=== PATIENT | female | born 1955 | race African-American/Black ===

== ENCOUNTER 2016-03-08 07:00 | Inpatient (IN) | payer OTHER ==
[~2016-03-08] VITALS: Ht 167.6 cm; Wt 81.4 kg
[2016-08-16] VITALS (28 sets, daily range): BP systolic 122–160; BP diastolic 60–93; PULSE 70–91; RESP 12–32; Ht 167.6 cm; Wt 81.4 kg
[2016-08-16] MEDS ORDERED: CEFAZOLIN 2GM/50 ML (PMX) 50 ML X1 BEFORE INCISION IVPB ONE (11:30)
[2016-08-16] MEDS ORDERED: CELECOXIB 400 MG PO X1 DOSE PO ONE (11:30)
[2016-08-16] MEDS ORDERED: oxyCODONE (CR) 10 MG TAB [oxyCONTIN] X1 DOSE PO ONE (11:30)
[2016-08-16] MEDS ORDERED: traMADOL 50 MG TAB X 1 DOSE PO ONE (11:30)
[2016-08-16] MEDS ORDERED: ROCURONIUM 50 MG INJ ONE (12:06)
[2016-08-16] MEDS ORDERED: LIDOCAINE 2% (SDV) 5 ML INJ ONE (12:06)
[2016-08-16] MEDS ORDERED: PROPOFOL 100 ML ONE (12:06)
[2016-08-16] MEDS ORDERED: GLYCOPYRROLATE 1 MG INJ ONE (12:06)
[2016-08-16] MEDS ORDERED: NEOSTIGMINE 3 MG/3 ML SYRINGE ONE (12:06)
[2016-08-16] MEDS ORDERED: MIDAZOLAM 1 MG/ML 2 ML INJ ONE (12:06)
[2016-08-16] MEDS ORDERED: FENTAnyl 50 MCG/ML VIAL ONE ×2 (12:06→12:10)
[2016-08-16] MEDS ORDERED: DEXAMETHASONE 4 MG/ML 1 ML INJ ONE (12:06)
[2016-08-16] MEDS ORDERED: ONDANSETRON 4 MG INJ ONE (12:06)
[2016-08-16] MEDS ORDERED: ETOMIDATE 20 MG INJ ONE (12:07)
[2016-08-16] MEDS ORDERED: BUPR150T6 PO (12:57)
[2016-08-16] MEDS ORDERED: HYDR-2086 PO (12:57)
[2016-08-16] MEDS ORDERED: DICL75TA2 PO (12:57)
[2016-08-16] MEDS ORDERED: LAMO200T PO (12:57)
[2016-08-16] MEDS ORDERED: ALPR1TAB7 PO (12:57)
[2016-08-16] MEDS ORDERED: QUET400T11 PO (12:57)
[2016-08-16] MEDS ORDERED: ESCI20TA38 PO (12:57)
[2016-08-16] MEDS ORDERED: GABA300C PO (12:57)
[2016-08-16] MEDS ORDERED: TRANEXAMIC ACID 880 MG in SOD CHLORIDE 0.9% 100 ML IVPB SCH (13:30)
[2016-08-16] MEDS ORDERED: SOD CHLORIDE 0.9% IV ONE (13:30)
[2016-08-16] MEDS ORDERED: TRANEXAMIC ACID IV ONE (13:30)
[2016-08-16] MEDS ORDERED: EXPAREL NOTE (BUPIVICAINE LIPOSOMAL) XX SCH (14:00)
[2016-08-16] MEDS ORDERED: BUPIVACAINE LIPOSOME/PF 266 MG/20 ML VIAL INFIL SCH (14:00)
[2016-08-16] MEDS ORDERED: SODIUM CL BACTERIOSTATIC 30 ML INJ ONE (14:47)
[2016-08-16] MEDS ORDERED: POLYMYXIN B 500000 UNIT INJ ONE (14:48)
[2016-08-16] MEDS ORDERED: PAIN COCKTAIL-CEFUROXIME IRR SCH ×7 (15:00)
[2016-08-16] MEDS ORDERED: PREGABALIN 300 MG PO X1 PO ONE (15:00)
[2016-08-16] MEDS ORDERED: CEFAZOLIN 1 GM INJ ONE (15:05)
[2016-08-16] MEDS ORDERED: BACITRACIN 50000 UNITS INJ ONE (15:07)
[2016-08-16] MEDS ORDERED: HYDROmorphONE (0.2 MG/ML) 10ML SYG IV PRN ×3 (15:30)
[2016-08-16] MEDS ORDERED: MEPERIDINE 25 MG INJ IV PRN (15:30)
[2016-08-16] MEDS ORDERED: TRIMETHOBENZAMIDE 100 MG/ML VIAL IM PRN (15:30)
[2016-08-16] MEDS ORDERED: FENTAnyl 50 MCG/ML VIAL IV PRN ×3 (15:30)
[2016-08-16] MEDS ORDERED: EPHEDrine SULFATE 50 MG/5 ML SYG IV PRN (15:30)
[2016-08-16] MEDS ORDERED: hydrALAzine 20 MG INJ IV PRN (15:30)
[2016-08-16] MEDS ORDERED: LABETALOL HCL 20MG INJ IV PRN (15:30)
[2016-08-16] MEDS ORDERED: ONDANSETRON 4 MG INJ IV PRN ×2 (15:30→18:00)
[2016-08-16] MEDS ORDERED: MIDAZOLAM 1 MG/ML 2 ML INJ IV PRN (15:30)
[2016-08-16] MEDS ORDERED: DIPHENHYDRAMINE 50 MG INJ IV PRN (15:30)
[2016-08-16] MEDS: VANCOMYCIN 1 GM INJ ONE ×2 (15:56→15:57)
--- NOTE | 2016-08-16 17:48 | OPPN ---
Date/Time of Note Date/Time of Note DATE: 08/16/16 TIME: 17:47 Operative/Procedure Note DIctation # [id number] Pre-Operative Diagnosis Left Knee OA Post-Operative Diagnosis Same Procedure Left TKA Surgeon: KINGSLEY SOTO MD Telegrapher Agent: KAMRAN MANUEL PA-C Anesthesiologist: Justus Birch M.D. Findings Severe OA Blood Usage/Administration None Implants/Grafts Depuy Attune TKA Estimated blood loss: 50 - 100 ml's Drains Hemovac x 1 Specimens: Not Applicable Complications: None Anesthesia type: spinal KINGSLEY SOTO MD Aug 16, 2016 17:48
--- NOTE | 2016-08-16 17:51 | PN ---
Date/Time of Note Date/Time of Note DATE: 08/16/16 TIME: 17:48 Assessment/Plan Lines/Catheters IV Catheter Type (from Nrsg): Peripheral IV Assessment/Plan Assessment/Plan Stable in PACU, s/p left TKA -cont abx -pain meds -cont home meds -ASA/SCDs -OOB with PT POD #1 -monitor drain -check AM labs -d/c waterman in AM XR of the left knee is pending at this time Subjective 24 Hr Interval Summary Stable in PACU. Minimal pain. Moving all extremities. Exam/Review of Systems Vital Signs Vitals Vital Signs Date Time Temp Pulse Resp B/P Pulse Ox O2 Delivery O2 Flow Rate FiO2 08/16/16 11:41 99.1 70 18 140/83 96 Room Air Intake and Output 08/15/16 08/15/16 08/16/16 15:00 23:00 07:00 Intake Total 0 ml Balance 0 ml Exam Free Text/Dictation Dressing dry Incision clean, dry, and intact without redness or drainage Thigh soft 5/5 Quadriceps, Tibialis Anterior, EHL, Gastroc, Soleus, Peroneals Normal sensation Palpable DT/PT, CR <2 sec No distal edema KAMRAN MANUEL PA-C Aug 16, 2016 17:51
[2016-08-16] MEDS ORDERED: oxyCODONE 5 MG TAB PO PRN (18:00)
[2016-08-16] MEDS ORDERED: DIPHENHYDRAMINE 25 MG CAP PO PRN (18:00)
[2016-08-16] MEDS ORDERED: BISACODYL 10 MG SUPP PR PRN (18:00)
[2016-08-16] MEDS: PANTOPRAZOLE (EC) 40 MG TAB PO SCH (18:00)
[2016-08-16] MEDS ORDERED: MAGNESIUM HYDROXIDE 30ML CUP PO PRN (18:00)
[2016-08-16] MEDS ORDERED: KETOROLAC 15 MG INJ IV SCH (18:00)
[2016-08-16] MEDS ORDERED: NA PHOSPHATE/BIPHOS 133 ML ENEMA PR PRN (18:00)
[2016-08-16] MEDS ORDERED: ASPIRIN (EC) 325 MG TAB PO ONE (18:00)
[2016-08-16] MEDS ORDERED: NACL 0.9% 3 ML SYG IV SCH (18:00)
[2016-08-16] MEDS ORDERED: HYDROmorphONE 1 MG/ML SYG IV PRN (18:00)
--- NOTE | 2016-08-16 18:14 | OPR ---
DATE OF OPERATION: 08/16/2016 DATE: 08/16/2016. PREOPERATIVE DIAGNOSIS: Left knee osteoarthritis. POSTOPERATIVE DIAGNOSIS: Left knee osteoarthritis. OPERATION PERFORMED: Left total knee arthroplasty. SURGEON: Kingsley Galvan MD COUNSELING AIDE: KAMRAN VU. COMPONENTS USED: DePuy Attune size 6 femoral component, size 5 tibial baseplate, 7 mm polyethylene insert and a 35 patellar button. ANESTHESIA: Spinal plus general endotracheal intubation and periarticular injection. ANESTHESIOLOGIST: JARRETT PITT MD. TOURNIQUET TIME: 67 minutes. ESTIMATED BLOOD LOSS: 50 mL. INTRAVENOUS FLUIDS: Two liters of crystalloid. SPECIMENS: Bone and soft tissue. DRAINS: Hemovac x1. COMPLICATIONS: None. DISPOSITION: Patient tolerated the procedure well and was taken to the recovery room in [facility]. Depuy INDICATIONS: The patient is a 61-year-old woman who has had progressive worsening pain in the left knee with radiographic evidence of severe osteoarthritis. She has failed nonsurgical means of treat ment to control her pain including activity modifications, pain medications, intra-articular injecti ons and ambulatory assist devices. Despite these measures, she has had worsening pain and I felt sh e would benefit from a total knee arthroplasty. The risks, benefits, and alternatives of the procedure were explained in detail to the patient. I ex plained the risks of the surgery to include but not be limited to, bleeding and possible need for bl ood transfusion; infection; pain; stiffness; neurovascular injury with possible numbness, weakness, and/or paralysis anywhere from the knee down to the toes; fracture; instability; dislocation; wear a nd/or loosening of the prosthesis and possible need for future revision; blood clots; pulmonary embo lism; and anesthetic complications such as heart attack, stroke, GI bleed, pneumonia, and/or . Ample time was allowed for the patient to ask questions, all of which were addressed and answered. T he patient understood the risks involved and wished to proceed. Informed consent was signed prior to the procedure. PROCEDURE: The patient's left knee was initialed with a marking pen in the preoperative area to kinjal ntify the correct operative site. The patient was brought to the operating room and transferred from the [facility] to the operating table where a spinal anesthetic was administered. The patient was then anesthetized and intubated. A Kumar catheter was placed. A timeout was performed to confirm that the left leg was the correct operative site. The patient was given 2 g of Ancef within one kwame r prior to the procedure. A tourniquet was placed on the operative proximal thigh. The operative kne e and lower extremity were prepped and draped in the usual sterile fashion. The operative lower extr emity was elevated and exsanguinated with an Esmarch tourniquet. The proximal thigh tourniquet was i nflated to 300 mmHg. The knee was flexed. A midline incision was made and carried down through the subcutaneous tissue an d fat with sharp dissection. Limited medial and lateral flaps were raised. A left approach was perfo rmed. Synovial fluid was normal in color and consistency. The patella was everted and the knee flexe d. There were severe tricompartmental osteoarthritic changes noted. A medial release was performed a t the joint line to the midcoronal plane. The ACL and PCL and remnants of the menisci were excised. The stepped drill was used to open up the femoral canal which was irrigated and sucked dry. The intr amedullary guide freida was passed up the femur, and the distal cutting block was pinned into place for a 5 degree valgus cut, taking 10 mm of bone off distally. The oscillating saw was used to make the cut. The tibia was subluxed anteriorly. The5 tibial cutoff jig was placed over the center of the talus di stally and over the junction of the medial and middle third of the tibial tubercle proximally. The g uide was pinned into place and the oscillating saw was used to make the cut. The tibia was sized. Th e extension gap was checked and accommodated a 7 mm spacer block with the knee in full extension. Th ere was no varus or valgus instability. At this point, the femur was sized with the posterior referencing guide. Two holes were drilled in 3 degrees of external rotation. The two holes were in line with the transepicondylar axis, perpendicu lar to Dave's line, and in line with the tibial cutoff jig brought up with the knee flexed 90 d egrees and tensed with 2 lamina spreaders, suggesting the femoral rotation was correct. The four-in- one cutting block was pinned into place. The anterior and posterior cuts and chamfer cuts were made with the oscillating saw. The flexion gap was checked and accommodated the 23 mm spacer block at 90 degrees. There was no varus or valgus instability, suggesting the flexion and extension gaps were no w equal. The central box was cut out on the femur. The tibia was drilled and punched in proper rotation. Tria l components were placed into position with a trial insert. The patella was cut down to 14 mm and si zed. Three holes were drilled and the trial button placed in position. With all the trials now in pl thania, the knee was taken through range of motion and came to full extension as evidenced by the fact that with the foot on my abdomen and axial loading, there was no tendency for the knee to flex. The knee was able to be flexed to 125 degrees with good patellar tracking with no lateral tilt or sublux ation. At this point, I was satisfied with the overall range of motion, stability, and patellar trac umer. The trials were removed. The real components were opened. Two bags of cement were mixed, one with an d one without premixed antibiotic. The knee was irrigated with antibiotic saline and sucked dry. Onc e the cement was in a doughy stage, the real components were cemented into place. The knee was held in full extension, and the patellar component was held with a patellar clamp. All excess cement was removed with curettes. As the cement was hardening, the synovial/capsular layer was infiltrated with a mixture of 150 mg of 0.5% Bupivacaine, 8 mg of Duramorph, 300 mcg of epinephrine, 30 mg of Torado l, 100 mcg of clonidine, 750 mg of cefuroxime and 86 mL of normal saline, followed by an injection o f 266 mg of liposomal Bupivacaine. A Hemovac drain was placed in the deep portion of the wound and brought out the anterolateral thigh. Once the cement was completely hardened, the trial liner was removed, and the real insert was opene d. The tourniquet was let down, and there was good hemostasis. The knee was then irrigated with a mi xture of betadine/saline and then antibiotic saline with pulsatile lavage. The real insert was impac paulina into the tibia and reduced onto to the femur. The arthrotomy was closed with a few interrupted #1 Ethibond in a [id number] fashion, and then closed in a watertight fashion with a running #2 Stratafix suture. Knee flexion was checked against gravity and came to 125 degrees. The subcutaneous layer was irrigated and closed with 2-0 Statafix, and then 3-0 Statafix and then Prineo Dermabond on the skin. The wound was covered with an occlusive dressing, and secured with cast padding and a bias dressing. The drain was secured with 3-0 nylon. The sponge and needle counts were correct at the end of the case. The patient was then awakened, ext ubated, and taken to the recovery room in stable condition. Dictated By: KINGSLEY DAUGHERTY/NTS Conf#: [id number] DID#: [id number]
--- NOTE | 2016-08-16 18:21 | RADRPT ---
PROCEDURE: XR Knee. CLINICAL INDICATION: Postop TECHNIQUE: Two views of the left knee are available for review. COMPARISON: None available FINDINGS: Left knee prosthesis is identified in anatomic location. No acute fracture or dislocation is seen. Alignment is anatomic. A drain is noted overlying the suprapatellar region from recent postsurgical change. RPTAT: EE IMPRESSION: 1. Left knee replacement in anatomic location. 2. No acute fracture or dislocation is seen. .Susie Goodman MD, MD Date Time Electronically viewed and signed by .Susie Goodman MD, on 08/16/2016 18:24 .T/
[2016-08-16 18:40] LABS: HEMATOCRIT 33.8 % (37.0-47.0); HEMOGLOBIN 11.1 g/dl (12.0-16.0)
[2016-08-16 19:04] LABS: CALCIUM 8.5 mg/dl (8.4-10.2); CREATININE 0.82 mg/dl (0.44-1.00); POTASSIUM 4.8 mmol/L (3.5-5.1)
[2016-08-16] MEDS: CEFAZOLIN 2 GM/50 ML (PMX) 50 ML IVPB SCH ×2 (19:20→19:38)
[2016-08-16] MEDS: ACETAMINOPHEN 1000MG/100ML IV 100 ML IVPB SCH (19:40)
[2016-08-16] MEDS ORDERED: QUETIAPINE 100 MG TAB PO SCH ×2 (21:00)
[2016-08-16] MEDS ORDERED: GABAPENTIN 100 MG CAP PO SCH (21:00)
[2016-08-16] MEDS: GABAPENTIN 300 MG CAP PO SCH (21:07)
[2016-08-16] MEDS: DOCUSATE SODIUM 100 MG CAP PO SCH (21:07)
[2016-08-16] MEDS: PREGABALIN 25 MG CAP PO SCH (21:07)
[2016-08-16] MEDS: KETOROLAC 15 MG INJ IV SCH (21:08)
--- NOTE | 2016-08-16 23:49 | CONS ---
DATE OF ADMISSION: 08/16/2016 DATE OF CONSULTATION: 08/16/2016 TIME: 9:30 p.m. REASON FOR CONSULTATION: Medical management. HISTORY OF PRESENT ILLNESS: The patient is a 61-year-old female with a history of schizophrenia as well as depression and left knee osteoarthritis. The patient is status post left total knee arthrop lasty today. Consultation was placed for medical management. The patient does have a history of sc hizophrenia as well as anxiety and depression. She has no other medical history. She has no other complaints at this time except for pain in the knee where she had surgery done earlier today. PAST MEDICAL HISTORY: Schizophrenia, depression, anxiety, insomnia. PAST SURGICAL HISTORY: She had 2 surgeries in her neck. She had 2 sections and she is pos top day 0 for a left total knee arthroplasty. HOME MEDICATIONS: 1. Voltaren gel. 2. Gabapentin. 3. Hydrocodone. 4. Alprazolam. 5. BuSpar. 6. Lexapro. 7. Lamictal. 8. Seroquel. ALLERGIES: NO KNOWN DRUG ALLERGIES. FAMILY HISTORY: Hypertension. SOCIAL HISTORY: Denies any alcohol or drug abuse. She does smoke cigarettes. She smoked a pack a day, now she smokes 4 cigarettes a day. REVIEW OF SYSTEMS: A 12-point review of systems negative except as in HPI. PHYSICAL EXAMINATION: VITAL SIGNS: Temperature is 98.4, pulse is 88, respiratory rate 30, BP is 150/74, saturation 95% on room air. GENERAL: No acute distress, alert and oriented. HEENT: Normocephalic, atraumatic. CHEST: Clear to auscultation. CARDIOVASCULAR: Regular rate and rhythm. ABDOMEN: Nondistended, nontender, soft. EXTREMITIES: No clubbing, cyanosis, or edema. LABORATORIES: Hemoglobin earlier today is 11.1, hematocrit is 33.8. Chemistry within normal limits . DIAGNOSTICS: Knee x-ray shows left knee replacement in anatomical location. No acute fracture or d islocation is seen. ASSESSMENT AND PLAN: 1. Left knee osteoarthritis status post left total knee arthroplasty. Continue pain control. Furt her recommendations per orthopedics. 2. History of schizophrenia as well as depression and anxiety. Continue home psychiatric medicatio ns with Alprazolam, BuSpar, Lexapro, Lamictal, and Seroquel. 3. Prophylaxis: Aspirin. Dictated By: PILLO SOTO/NTS Conf#: [id number] DID#: [id number]
[2016-08-17 00:15] VITALS: BP 133/70; PULSE 81; RESP 19
[2016-08-17] MEDS: LACTATED RINGER'S 1,000 ML IV SCH ×4 (01:33→17:30)
[2016-08-17 01:40] VITALS: BP 144/93; RESP 18
[2016-08-17] MEDS: CEFAZOLIN 2 GM/50 ML (PMX) 50 ML IVPB SCH ×2 (02:49→11:21)
[2016-08-17] MEDS: KETOROLAC 15 MG INJ IV SCH ×2 (04:53→12:32)
[2016-08-17 05:10] VITALS: BP 146/80; PULSE 71; RESP 19
[2016-08-17 05:37] LABS: HEMATOCRIT 31.9 % (37.0-47.0); HEMOGLOBIN 10.4 g/dl (12.0-16.0)
[2016-08-17 05:41] LABS: CREATININE 0.66 mg/dl (0.44-1.00)
[2016-08-17 05:42] LABS: CALCIUM 8.6 mg/dl (8.4-10.2)
[2016-08-17] MEDS: PANTOPRAZOLE (EC) 40 MG TAB PO SCH ×2 (05:50→17:30)
[2016-08-17] MEDS: traMADol 50 MG TAB PO SCH ×5 (05:50→23:52)
[2016-08-17] MEDS: ACETAMINOPHEN 1000MG/100ML IV 100 ML IVPB SCH ×3 (05:50→12:32)
[2016-08-17 06:29] LABS: ADD UMIC YES; URINE BILIRUBIN (Dip) NEGATIVE (NEGATIVE); URINE BLOOD (Dip) TRACE (NEGATIVE); URINE COLOR LT. YELLOW (YELLOW); URINE GLUCOSE (Dip) NEGATIVE (NEGATIVE); URINE KETONES (Dip) NEGATIVE (NEGATIVE); URINE LEUKOCYTE ESTERASE (Dip) NEGATIVE (NEGATIVE); URINE NITRITE (Dip) NEGATIVE (NEGATIVE); URINE TOTAL PROTEIN (Dip) NEGATIVE (NEGATIVE); URINE UROBILINOGEN (Dip) 0.2 E.U./dL (0.1-1.0)
[2016-08-17 06:46] LABS: URINE RBCS 0-2 /HPF (0)
[2016-08-17 07:30] VITALS: BP 128/71; RESP 20
[2016-08-17] MEDS: CELECOXIB 200 MG CAP PO SCH (08:28)
[2016-08-17] MEDS: LAMOTRIGINE 100 MG TAB PO SCH (08:29)
[2016-08-17] MEDS: ASPIRIN (EC) 325 MG TAB PO SCH ×2 (08:29→20:24)
[2016-08-17] MEDS: DOCUSATE SODIUM 100 MG CAP PO SCH ×2 (08:29→20:24)
[2016-08-17] MEDS: PREGABALIN 25 MG CAP PO SCH ×2 (08:30→20:24)
[2016-08-17] MEDS: GABAPENTIN 300 MG CAP PO SCH ×3 (08:30→20:24)
[2016-08-17] MEDS: BUPROPION (XL) 150 MG TAB PO SCH (08:30)
--- NOTE | 2016-08-17 08:31 | PN ---
Date/Time of Note Date/Time of Note DATE: 08/17/16 TIME: 08:29 Assessment/Plan Lines/Catheters IV Catheter Type (from Nrsg): Peripheral IV Waterman in Place (from Nrsg): Yes Assessment/Plan Assessment/Plan Stable POD #1 s/p left TKA -d/c abx -pain meds -seroquel dose adjusted -ASA/SCDs, bilateral LE -OOB with PT -drain removed -d/c waterman -check AM labs -d/c planning. d/c home versus SNF Subjective 24 Hr Interval Summary Doing well. No acute overnight events. Pain minimal. VSS, afebrile Exam/Review of Systems Vital Signs Vitals Vital Signs Date Time Temp Pulse Resp B/P Pulse Ox O2 Delivery O2 Flow Rate FiO2 08/17/16 07:30 97.1 74 20 128/71 99 08/17/16 05:10 Nasal Cannula 2.0 Intake and Output 08/16/16 08/16/16 08/17/16 15:00 23:00 07:00 Intake Total 2036 ml 860 ml Output Total 660 ml 2450 ml Balance 1376 ml -1590 ml Exam Free Text/Dictation Hemovac: 310cc Dressing dry Incision clean, dry, and intact without redness or drainage Thigh soft 5/5 Quadriceps, Tibialis Anterior, EHL, Gastroc, Soleus, Peroneals Normal sensation Palpable DT/PT, CR <2 sec No distal edema Results Result Diagram: 08/17/1641908/17/16419 KAMRAN MANUEL PA-C Aug 17, 2016 08:31
[2016-08-17] MEDS: oxyCODONE 5 MG TAB PO PRN ×3 (08:34→22:31)
[2016-08-17] MEDS ORDERED: ESCITALOPRAM 10 MG TAB PO SCH (09:00)
[2016-08-17] MEDS: ALPRAZOLAM 1 MG TAB PO PRN ×2 (11:21→23:51)
[2016-08-17] MEDS ORDERED: CEPASTAT LOZENGE MT PRN (11:30)
[2016-08-17 11:33] LABS: IRON 56 ug/dl (35-150)
[2016-08-17 11:42] LABS: TOTAL IRON BINDING CAPACITY 281 ug/dl (241-421)
--- NOTE | 2016-08-17 11:51 | PN ---
DATE: 08/17/2016 SUBJECTIVE DATA: Left knee pain not well controlled. Has been up with physical therapy today. OBJECTIVE DATA: VITAL SIGNS: Temperature 97.1, pulse 74, respiratory rate 20, blood pressure 128/71, oxygen saturation 99% on room air. GENERAL: This is a slightly overweight female lying in bed in no apparent distress. HEENT: Head normocephalic and atraumatic. Eyes: Anicteric sclerae. Conjunctivae clear. ENT: Nasal septum is midline. Oral mucosa is moist. NECK: Supple. No JVD. RESPIRATORY: Bilaterally clear to auscultation. No adventitious breath sounds heard. No use of accessory muscles of respiration. CARDIAC: Regular rate and rhythm. No murmurs heard. ABDOMEN: Soft, nontender and nondistended. Bowel sounds positive in all 4 quadrants. GENITOURINARY: Deferred. EXTREMITIES: No cyanosis, no clubbing, no edema. Peripheral pulses palpable. Left knee surgical dressing. NEUROLOGIC: The patient is awake, alert and oriented. Cranial nerves are grossly intact. LABORATORY AND DIAGNOSTIC DATA: Hemoglobin 10.4, hematocrit 31.9. Sodium 144, potassium 4.0, chloride 105, carbon dioxide 30, anion gap 14, BUN 7, creatinine 0.66, glucose 117, calcium 8.6. ASSESSMENT AND PLAN: 1. Left knee osteoarthritis. Status post left knee arthroplasty on 2016. Continue pain control as per surgery. Wound management as per orthopedic surgery. Continue physical therapy. 2. Schizophrenia. Continue antipsychotics. 3. Depression. Continue antidepressants. 4. Anxiety disorder. Continue anxiolytics. 5. Anemia. Etiology unclear. Will obtain an iron panel. We will monitor the hemoglobin and hematocrit closely. Will transfuse as needed. 6. Fluid, electrolytes and nutrition. Continue regular diet. 7. Deep vein thrombosis prophylaxis with aspirin as per orthopedic surgery. 8. Gastrointestinal prophylaxis with proton pump inhibitors. Will continue to follow the patient along with you. Thank you for the consult. Case discussed with Dr. Johnson. AMARI JOHNSON MD, AM/NELSON Conf#: [id number] DID#: [id number] CC: KINGSLEY SOTO MD;*EndCC* MTDD
[2016-08-17] MEDS: QUETIAPINE 100 MG TAB PO SCH (20:24)
[2016-08-17 21:06] VITALS: BP 111/63; RESP 20
[2016-08-18] MEDS: LACTATED RINGER'S 1,000 ML IV SCH ×3 (01:38→17:38)
[2016-08-18 05:29] LABS: BASOPHILS % 0.6 % (0.0-2.0); EOSINOPHILS # 0.1 10^3/ul (0.0-0.5); HEMATOCRIT 27.3 % (37.0-47.0); HEMOGLOBIN 9.2 g/dl (12.0-16.0); LYMPHOCYTES # 2.2 10^3/ul (0.8-2.9); LYMPHOCYTES % 32.6 % (15.0-51.0); MEAN CORPUSCULAR HEMOGLOBIN 29.9 pg (29.0-33.0); MEAN CORPUSCULAR HGB CONC 33.6 g/dl (32.0-37.0); MEAN CORPUSCULAR VOLUME 88.9 fl (82.0-101.0); MONOCYTE # 0.6 10^3/ul (0.3-0.9); MONOCYTES % 8.4 % (0.0-11.0); NEUTROPHIL # 3.9 10^3/ul (1.6-7.5); NEUTROPHILS % 56.4 % (39.0-77.0); PLATELET COUNT 343 10^3/UL (140-440); RED BLOOD COUNT 3.07 10^6/ul (4.20-5.40); RED CELL DISTRIBUTION WIDTH 16.1 % (11.5-14.5); UNCORRECTED WBC 6.8 10^3/ul (4.8-10.8); WHITE BLOOD COUNT 6.8 10^3/ul (4.8-10.8)
[2016-08-18 05:32] LABS: CONDITION 1; LH ANALYZER COMMENTS 1
[2016-08-18 05:39] LABS: MAGNESIUM 1.7 mg/dl (1.7-2.5); PHOSPHORUS 3.9 mg/dl (2.5-4.9)
[2016-08-18 05:49] LABS: POTASSIUM 3.3 mmol/L (3.5-5.1)
[2016-08-18 05:51] LABS: ALBUMIN/GLOBULIN RATIO 1.11; CREATININE 0.77 mg/dl (0.44-1.00); TOTAL PROTEIN 5.7 g/dl (6.1-8.1)
[2016-08-18 05:52] LABS: CALCIUM 8.2 mg/dl (8.4-10.2)
[2016-08-18] MEDS: PANTOPRAZOLE (EC) 40 MG TAB PO SCH ×2 (06:33→17:32)
[2016-08-18] MEDS: traMADol 50 MG TAB PO SCH ×4 (06:34→23:43)
[2016-08-18] MEDS ORDERED: POTASSIUM CHLORIDE (SR) 20 MEQ TAB PO STA (08:06)
[2016-08-18 08:19] VITALS: BP 116/58; RESP 18
--- NOTE | 2016-08-18 08:43 | PN ---
Date/Time of Note Date/Time of Note DATE: 08/18/16 TIME: 08:42 Assessment/Plan VTE Prophylaxis VTE Prophylaxis Intervention: other (Aspirin as per Orthopedic Surgery.) Lines/Catheters IV [facility] ([facility] Saline Lock Urinary Cath still in place: No Assessment/Plan Chief Complaint/Hosp Course 1. Left knee osteoarthritis. Status post left knee arthroplasty on 2016. Continue pain control as per surgery. Wound management as per orthopedic surgery. Continue physical therapy. 2. Schizophrenia. Continue antipsychotics. 3. Depression. Continue antidepressants. 4. Anxiety disorder. Continue anxiolytics. 5. Normocytic, normochromic anemia. Iron panel showing low iron saturation. Will monitor the hemoglobin and hematocrit closely. Will transfuse as needed. 6. Hypokalemia. Replete. 7. Fluid, electrolytes and nutrition. Continue regular diet. 8. Deep vein thrombosis prophylaxis with aspirin as per orthopedic surgery. 9. Gastrointestinal prophylaxis with proton pump inhibitors. Will continue to follow the patient along with you. Thank you for the consult. Case discussed with Dr. Johnson. Problems: Subjective 24 Hr Interval Summary Free Text/Dictation Has left knee pain. Complains of sore throat. Exam/Review of Systems Vital Signs Vitals Vital Signs Date Time Temp Pulse Resp B/P Pulse Ox O2 Delivery O2 Flow Rate FiO2 08/18/16 08:19 97.7 91 18 116/58 96 08/17/16 19:37 2.0 08/17/16 05:10 Nasal Cannula Intake and Output 08/17/16 08/17/16 08/18/16 14:59 22:59 06:59 Intake Total 100 ml 1860 ml 700 ml Output Total 1100 ml Balance 100 ml 760 ml 700 ml Exam GENERAL: This is a slightly overweight female lying in bed in no apparent distress. HEENT: Head normocephalic and atraumatic. Eyes: Anicteric sclerae. Conjunctivae clear. ENT: Nasal septum is midline. Oral mucosa is moist. NECK: Supple. No JVD. RESPIRATORY: Bilaterally clear to auscultation. No adventitious breath sounds heard. No use of accessory muscles of respiration. CARDIAC: Regular rate and rhythm. No murmurs heard. ABDOMEN: Soft, nontender and nondistended. Bowel sounds positive in all 4 quadrants. GENITOURINARY: Deferred. EXTREMITIES: No cyanosis, no clubbing, no edema. Peripheral pulses palpable. Left knee surgical dressing. NEUROLOGIC: The patient is awake, alert and oriented. Cranial nerves are grossly intact. Results Result Diagram: 08/18/1642408/18/16424 Results 24 hrs Laboratory Tests Test 08/18/16 04:25 Alanine Aminotransferase (ALT/SGPT) 23 Albumin 3.0 L Albumin/Globulin Ratio 1.11 Alkaline Phosphatase 81 Anion Gap 13 Aspartate Amino Transf (AST/SGOT) 23 Basophils # 0.0 Basophils % 0.6 Blood Morphology Comment Blood Urea Nitrogen 9 Calcium Level 8.2 L Carbon Dioxide Level 31 Chloride Level 105 Creatinine 0.77 Direct Bilirubin 0.00 Eosinophils # 0.1 Eosinophils % 2.0 Globulin 2.70 Glucose Level 83 Hematocrit 27.3 L Hemoglobin 9.2 L Indirect Bilirubin 0.0 Lymphocytes # 2.2 Lymphocytes % 32.6 Magnesium Level 1.7 Mean Corpuscular Hemoglobin 29.9 Mean Corpuscular Hemoglobin Concent 33.6 Mean Corpuscular Volume 88.9 Mean Platelet Volume 8.0 Monocytes # 0.6 Monocytes % 8.4 Neutrophils # 3.9 Neutrophils % 56.4 Nucleated Red Blood Cells # 0.0 Nucleated Red Blood Cells % 0.0 Phosphorus Level 3.9 Platelet Count 343 Potassium Level 3.3 L Red Blood Count 3.07 L Red Cell Distribution Width 16.1 H Sodium Level 146 H Total Bilirubin 0.0 L Total Protein 5.7 L White Blood Count 6.8 Medications Medications Current Medications Miscellaneous Information 1 ea NOTE XX ; Start 08/16/16 at 14:00; Stop 08/20/16 at 13:59 Alprazolam (Xanax) 1 mg Q8H PRN PO ANXIETY Last administered on 08/17/16 23:51 ; Admin Dose 1 MG; Start 08/16/16 at 18:00 Bupropion HCl (Wellbutrin Xl) 150 mg DAILY PO Last administered on 08/17/16 08: 30; Admin Dose 150 MG; Start 08/17/16 at 09:00 Lamotrigine 200 mg 200 mg DAILY PO Last administered on 08/17/16 08:29; Admin Dose 200 MG; Start 08/17/16 at 09:00 Lactated Ringer's (Lr) 1,000 ml @ 125 mls/hr Q8H IV Last administered on 17:30; Admin Dose 125 MLS/HR; Start 08/16/16 at 17:38 Celecoxib (Celebrex) 200 mg DAILY PO Last administered on 08/17/16 08:28; Admin Dose 200 MG; Start 08/17/16 at 09:00 Tramadol HCl (Ultram) 50 mg Q6 PO Last administered on 08/18/16 06:34; Admin Dose 50 MG; Start 08/16/16 at 18:00; Stop 08/19/16 at 17:59 Oxycodone HCl (Roxicodone) 5 mg Q4H PRN PO PAIN LEVEL 1-3 Last administered on 08/17/16 03:01; Admin Dose 5 MG; Start 08/16/16 at 18:00 Oxycodone HCl (Roxicodone) 10 mg Q4H PRN PO PAIN LEVEL 4-7 Last administered on 08/17/16 22:31; Admin Dose 10 MG; Start 08/16/16 at 18:00 Hydromorphone HCl (Dilaudid) 1 mg Q3H PRN IV PAIN LEVEL 8-10; Start 08/16/16 at 18:00 Ondansetron HCl (Zofran Inj) 4 mg Q6H PRN IV NAUSEA AND/OR VOMITING; Start 08/16 at 18:00 Bisacodyl (Dulcolax Supp) 10 mg Q12H PRN ID CONSTIPATION; Start 08/16/16 at 18: 00 Magnesium Hydroxide (Milk Of Mag) 30 ml BID PRN PO CONSTIPATION; Start 08/16/16 at 18:00 Sodium Biphosphate/ Sodium Phosphate (Fleet Enema) 133 ml DAILY PRN ID CONSTIPATION; Start 08/16/16 at 18:00 Docusate Sodium (Colace) 100 mg BID PO Last administered on 08/17/16 20:24; Admin Dose 100 MG; Start 08/16/16 at 21:00 Diphenhydramine HCl (Benadryl) 25 mg Q6H PRN PO PRURITUS; Start 08/16/16 at 18: 00 Aspirin (Ecotrin) 325 mg BID PO Last administered on 08/17/16 20:24; Admin Dose 325 MG; Start 08/17/16 at 09:00 Pantoprazole (Protonix Tab) 40 mg BID@18 PO Last administered on 08/18/16 06 :33; Admin Dose 40 MG; Start 08/16/16 at 18:00 Pregabalin (Lyrica) 50 mg BID PO Last administered on 08/17/16 20:24; Admin Dose 50 MG; Start 08/16/16 at 21:00 Gabapentin (Neurontin) 300 mg TID PO Last administered on 08/17/16 20:24; Admin Dose 300 MG; Start 08/16/16 at 21:00 Quetiapine Fumarate (Seroquel) 100 mg QHS PO Last administered on 08/17/16 20: 24; Admin Dose 100 MG; Start 08/17/16 at 21:00 Phenol (Cepastat Lozenge) 1 lozenge Q1H PRN MT Sore throat; Start 08/17/16 at 11 :30 Escitalopram Oxalate (Lexapro) 20 mg QHS PO ; Start 08/18/16 at 21:00 AMARI BRIGGS NP Aug 18, 2016 08:43
[2016-08-18] MEDS: BUPROPION (XL) 150 MG TAB PO SCH (08:58)
[2016-08-18] MEDS: LAMOTRIGINE 100 MG TAB PO SCH (08:58)
[2016-08-18] MEDS: ASPIRIN (EC) 325 MG TAB PO SCH ×2 (08:58→21:09)
[2016-08-18] MEDS: GABAPENTIN 300 MG CAP PO SCH ×3 (08:58→21:08)
[2016-08-18] MEDS: CELECOXIB 200 MG CAP PO SCH (08:58)
[2016-08-18] MEDS: PREGABALIN 25 MG CAP PO SCH ×2 (08:59→21:08)
[2016-08-18] MEDS: DOCUSATE SODIUM 100 MG CAP PO SCH ×2 (09:00→21:09)
--- NOTE | 2016-08-18 10:46 | PN ---
Date/Time of Note Date/Time of Note DATE: 08/18/16 TIME: 10:44 Assessment/Plan Lines/Catheters IV Catheter Type (from Nrsg): Saline Lock Kumar in Place (from Nrsg): No Assessment/Plan Assessment/Plan Stable POD #2 s/p left TKA -pain meds -ASA/SCDs -dressing changed -OOB with PT -check AM labs -mild anemia secondary to post operative blood loss. Stable, will monitor for now -discharge planning. Will plan to go home tomorrow. Subjective 24 Hr Interval Summary Doing well. No acute overnight events. Mild pain. Progressing with PT. Will plan to go home tomorrow. Exam/Review of Systems Vital Signs Vitals Vital Signs Date Time Temp Pulse Resp B/P Pulse Ox O2 Delivery O2 Flow Rate FiO2 08/18/16 08:19 97.7 91 18 116/58 96 08/17/16 19:37 2.0 08/17/16 05:10 Nasal Cannula Intake and Output 08/17/16 08/17/16 08/18/16 15:00 23:00 07:00 Intake Total 100 ml 1860 ml 700 ml Output Total 1100 ml Balance 100 ml 760 ml 700 ml Exam Free Text/Dictation Dressing dry Incision clean, dry, and intact without redness or drainage Thigh soft 5/5 Quadriceps, Tibialis Anterior, EHL, Gastroc, Soleus, Peroneals Normal sensation Palpable DT/PT, CR <2 sec No distal edema Results Result Diagram: 08/18/165 08/18/16 0425 KAMRAN MANUEL PA-C Aug 18, 2016 10:45
--- NOTE | 2016-08-18 10:47 | PDOCDIS ---
Discharge Instructions DIAGNOSIS Discharge Diagnosis: s/p left TKA CONDITION Patient Condition: Good HOME CARE INSTRUCTIONS: Diet Instructions: Regular ACTIVITY: Activity Restrictions: No Restrictions Slowly Increase Activity Rest between Activity Avoid heavy lifting Do not operate Machinery Do not operate Power Tool Avoid Heavy Housework Bathing Restrictions: Shower FOLLOW UP/APPOINTMENTS Appointments follow up with Dr. Galvan in the office on 08/26/16 OTHER ORDERS: Other Orders: S/P TKA Physical Therapy: Three times per week at home x 2 weeks WB STATUS: WBAT 1. Strengthening exercises for both upper and un-operated lower extremities. 2. Gait training with front wheeled walker 3. Active range of motion exercises to operative knee. 4. When not working on knee range of motion exercises, distal towel roll under operative ankle/distal calf to promote full extension. 5. DO NOT PUT ANYTHING BEHIND OPERATIVE KNEE!!! 6. Quadriceps and hamstring strengthening. 7. May switch to cane in contra lateral hand 6 weeks after surgery. 8. Physical Therapy can open case if nursing is not available. 9. Use Ice Machine as instructed from date of surgery while at rest 3X/day. 10. Patient requires mobile SCDs to reduce risk of developing DVT following TKA. Patient will use the mobile SCDs for 30 days postoperatively. Bathing assistance by home health aide twice weekly if Medicare patient. Occupational Therapy: Evaluation for assistive devices and ADL training. Wound Care: Keep incision dry & covered with Tegaderm until first visit with Dr. Galvan Anticoagulation Orders: Enteric Coated Aspirin 325 mg po bid x 6 weeks from date of surgery Follow-up:Call for an appointment with Dr. Galvan in 1 week after discharged from hospital at DME Orders: IRAIS, 3-in-1 Commode, Polar ice machine, Mobile SCDs KAMRAN MANUEL PA-C Aug 18, 2016 10:47
[2016-08-18] MEDS ORDERED: ASPI325T32 PO (10:49)
[2016-08-18] MEDS ORDERED: PANT40TA4 PO (10:49)
[2016-08-18] MEDS: oxyCODONE 5 MG TAB PO PRN ×2 (15:41→23:38)
[2016-08-18 19:10] VITALS: BP 108/58; RESP 20
[2016-08-18] MEDS ORDERED: ESCITALOPRAM 10 MG TAB PO SCH (21:00)
[2016-08-18] MEDS: QUETIAPINE 100 MG TAB PO SCH (21:08)
[2016-08-18] MEDS: ALPRAZOLAM 1 MG TAB PO PRN (23:37)
[2016-08-19] MEDS: LACTATED RINGER'S 1,000 ML IV SCH ×2 (01:38→09:00)
[2016-08-19] MEDS: oxyCODONE 5 MG TAB PO PRN ×2 (05:45→13:15)
[2016-08-19] MEDS: PANTOPRAZOLE (EC) 40 MG TAB PO SCH (05:45)
[2016-08-19 05:53] LABS: HEMATOCRIT 28.1 % (37.0-47.0); HEMOGLOBIN 9.4 g/dl (12.0-16.0)
[2016-08-19] MEDS: traMADol 50 MG TAB PO SCH ×2 (06:00→13:14)
[2016-08-19 06:05] LABS: POTASSIUM 4.3 mmol/L (3.5-5.1)
[2016-08-19 06:08] LABS: CALCIUM 8.1 mg/dl (8.4-10.2); CREATININE 0.77 mg/dl (0.44-1.00)
[2016-08-19 08:24] VITALS: BP 122/61; RESP 18
[2016-08-19] MEDS: CELECOXIB 200 MG CAP PO SCH (09:00)
[2016-08-19] MEDS: PREGABALIN 25 MG CAP PO SCH (09:00)
[2016-08-19] MEDS: BUPROPION (XL) 150 MG TAB PO SCH (09:00)
[2016-08-19] MEDS: GABAPENTIN 300 MG CAP PO SCH ×2 (09:00→13:13)
[2016-08-19] MEDS: ASPIRIN (EC) 325 MG TAB PO SCH (09:00)
[2016-08-19] MEDS: DOCUSATE SODIUM 100 MG CAP PO SCH (09:00)
[2016-08-19] MEDS: LAMOTRIGINE 100 MG TAB PO SCH (09:00)
[2016-08-19] MEDS ORDERED: OXYC-209 PO (09:01)
--- NOTE | 2016-08-19 09:03 | PN ---
Date/Time of Note Date/Time of Note DATE: 08/19/16 TIME: 09:02 Assessment/Plan Lines/Catheters IV Catheter Type (from Nrsg): Saline Lock Kumar in Place (from Nrsg): No Assessment/Plan Assessment/Plan Stable POD #3 s/p left TKA -pain meds -ASA/SCDs -OOB with PT -ice and elevationn -dressing change done today -d/c home today -follow up with Dr. Galvan in the office on 08/26/16 Subjective 24 Hr Interval Summary Doing well. No acute overnight events. Mild pain secondary to knee swelling. No calf pain, tenderness or swelling. VSS, afebrile. Would like to go home today Exam/Review of Systems Vital Signs Vitals Vital Signs Date Time Temp Pulse Resp B/P Pulse Ox O2 Delivery O2 Flow Rate FiO2 08/19/16 08:24 98.4 87 18 122/61 93 08/17/16 19:37 2.0 08/17/16 05:10 Nasal Cannula Intake and Output 08/18/16 08/18/16 08/19/16 15:00 23:00 07:00 Intake Total 1140 ml 1200 ml Balance 1140 ml 1200 ml Exam Free Text/Dictation Dressing dry Incision clean, dry, and intact without redness or drainage Thigh soft 5/5 Quadriceps, Tibialis Anterior, EHL, Gastroc, Soleus, Peroneals Normal sensation Palpable DT/PT, CR <2 sec No distal edema Results Result Diagram: 08/19/16 0410 08/19/16 0410 KAMRAN MANUEL PA-C Aug 19, 2016 09:03
--- NOTE | 2016-08-19 09:53 | PN ---
Date/Time of Note Date/Time of Note DATE: 08/19/16 TIME: 09:51 Assessment/Plan VTE Prophylaxis VTE Prophylaxis Intervention: other (asprin per ortho) Lines/Catheters IV Catheter Type (from Nrs): Saline Lock Urinary Cath still in place: No Assessment/Plan Assessment/Plan 1. Left knee osteoarthritis. Status post left knee arthroplasty on 2016. Continue pain control as per surgery. Wound management as per orthopedic surgery. Continue physical therapy. 2. Schizophrenia. Continue antipsychotics. 3. Depression. Continue antidepressants. 4. Anxiety disorder. Continue anxiolytics. 5. Normocytic, normochromic anemia. Iron panel showing low iron saturation. 6. Hypokalemia. Repleted. 7. Fluid, electrolytes and nutrition. Continue regular diet. 8. Deep vein thrombosis prophylaxis with aspirin as per orthopedic surgery. 9. Gastrointestinal prophylaxis with proton pump inhibitors. DISPO: agree with d/c. F/u with outpt PCP in 1-2 weeks. Subjective 24 Hr Interval Summary Free Text/Dictation patient seen doing well, planned for d/c today Exam/Review of Systems Vital Signs Vitals Vital Signs Date Time Temp Pulse Resp B/P Pulse Ox O2 Delivery O2 Flow Rate FiO2 08/19/16 08:24 98.4 87 18 122/61 93 08/17/16 19:37 2.0 08/17/16 05:10 Nasal Cannula Intake and Output 08/18/16 08/18/16 08/19/16 15:00 23:00 07:00 Intake Total 1140 ml 1200 ml Balance 1140 ml 1200 ml Exam GENERAL: This is a slightly overweight female lying in bed in no apparent distress. HEENT: Head normocephalic and atraumatic. Eyes: Anicteric sclerae. Conjunctivae clear. ENT: Nasal septum is midline. Oral mucosa is moist. NECK: Supple. No JVD. RESPIRATORY: Bilaterally clear to auscultation. No adventitious breath sounds heard. No use of accessory muscles of respiration. CARDIAC: Regular rate and rhythm. No murmurs heard. ABDOMEN: Soft, nontender and nondistended. Bowel sounds positive in all 4 quadrants. GENITOURINARY: Deferred. EXTREMITIES: No cyanosis, no clubbing, no edema. Peripheral pulses palpable. Left knee surgical dressing. NEUROLOGIC: The patient is awake, alert and oriented. Cranial nerves are grossly intact. Results Result Diagram: 08/19/16 0410 08/19/16 0410 Results 24 hrs Laboratory Tests Test 08/19/16 04:10 Anion Gap 10 Blood Urea Nitrogen 8 Calcium Level 8.1 L Carbon Dioxide Level 33 H Chloride Level 103 Creatinine 0.77 Glucose Level 89 Hematocrit 28.1 L Hemoglobin 9.4 L Potassium Level 4.3 Sodium Level 142 Medications Medications Current Medications Miscellaneous Information 1 ea NOTE XX ; Start 08/16/16 at 14:00; Stop 08/20/16 at 13:59 Alprazolam (Xanax) 1 mg Q8H PRN PO ANXIETY Last administered on 08/18/16 23:37 ; Admin Dose 1 MG; Start 08/16/16 at 18:00 Bupropion HCl (Wellbutrin Xl) 150 mg DAILY PO Last administered on 08/19/16 09: 00; Admin Dose 150 MG; Start 08/17/16 at 09:00 Lamotrigine 200 mg 200 mg DAILY PO Last administered on 08/19/16 09:00; Admin Dose 200 MG; Start 08/17/16 at 09:00 Lactated Ringer's (Lr) 1,000 ml @ 125 mls/hr Q8H IV Last administered on 17:30; Admin Dose 125 MLS/HR; Start 08/16/16 at 17:38 Celecoxib (Celebrex) 200 mg DAILY PO Last administered on 08/19/16 09:00; Admin Dose 200 MG; Start 08/17/16 at 09:00 Tramadol HCl (Ultram) 50 mg Q6 PO Last administered on 08/18/16 17:33; Admin Dose 50 MG; Start 08/16/16 at 18:00; Stop 08/19/16 at 17:59 Oxycodone HCl (Roxicodone) 5 mg Q4H PRN PO PAIN LEVEL 1-3 Last administered on 08/17/16 03:01; Admin Dose 5 MG; Start 08/16/16 at 18:00 Oxycodone HCl (Roxicodone) 10 mg Q4H PRN PO PAIN LEVEL 4-7 Last administered on 08/19/16 05:45; Admin Dose 10 MG; Start 08/16/16 at 18:00 Hydromorphone HCl (Dilaudid) 1 mg Q3H PRN IV PAIN LEVEL 8-10 Last administered on 08/18/16 16:38; Admin Dose 1 MG; Start 08/16/16 at 18:00 Ondansetron HCl (Zofran Inj) 4 mg Q6H PRN IV NAUSEA AND/OR VOMITING; Start 08/16 at 18:00 Bisacodyl (Dulcolax Supp) 10 mg Q12H PRN ID CONSTIPATION; Start 08/16/16 at 18: 00 Magnesium Hydroxide (Milk Of Mag) 30 ml BID PRN PO CONSTIPATION; Start 08/16/16 at 18:00 Sodium Biphosphate/ Sodium Phosphate (Fleet Enema) 133 ml DAILY PRN ID CONSTIPATION; Start 08/16/16 at 18:00 Docusate Sodium (Colace) 100 mg BID PO Last administered on 08/19/16 09:00; Admin Dose 100 MG; Start 08/16/16 at 21:00 Diphenhydramine HCl (Benadryl) 25 mg Q6H PRN PO PRURITUS; Start 08/16/16 at 18: 00 Aspirin (Ecotrin) 325 mg BID PO Last administered on 08/19/16 09:00; Admin Dose 325 MG; Start 08/17/16 at 09:00 Pantoprazole (Protonix Tab) 40 mg BID@,18 PO Last administered on 08/19/16 05 :45; Admin Dose 40 MG; Start 08/16/16 at 18:00 Pregabalin (Lyrica) 50 mg BID PO Last administered on 08/18/16 21:08; Admin Dose 50 MG; Start 08/16/16 at 21:00 Gabapentin (Neurontin) 300 mg TID PO Last administered on 08/19/16 09:00; Admin Dose 300 MG; Start 08/16/16 at 21:00 Quetiapine Fumarate (Seroquel) 100 mg QHS PO Last administered on 08/18/16 21: 08; Admin Dose 100 MG; Start 08/17/16 at 21:00 Phenol (Cepastat Lozenge) 1 lozenge Q1H PRN MT Sore throat; Start 08/17/16 at 11 :30 Escitalopram Oxalate (Lexapro) 20 mg QHS PO Last administered on 08/18/16 21:09 ; Admin Dose 20 MG; Start 08/18/16 at 21:00 VITALIY LOOMIS Aug 19, 2016 09:53
--- NOTE | 2016-08-20 12:12 | DS ---
DATE OF ADMISSION: 08/16/2016 DATE OF DISCHARGE: 08/19/2016 CONDITION ON DISCHARGE: Stable. ADMITTING DIAGNOSIS: Left knee osteoarthritis. DISCHARGE DIAGNOSIS: Status post left total knee arthroplasty. PROCEDURES PERFORMED: Left total knee arthroplasty. HOSPITAL COURSE: This is a 61-year-old female who was seen in the clinic initially complaining of right knee pain. Radiographically, she had findings of advanced osteoarthritis of the left knee and elected to proceed with a primary left total knee arthroplasty. On 08/16/2016, the patient was admitted and taken to the operating room where she underwent a left total knee arthroplasty. There were no intraoperative complications. Patient tolerated the procedure well. She was taken to the recovery room in stable condition. She was given routine perioperative IV antibiotics. Pain was well controlled on oral pain medication. She was started on enteric coated aspirin 325 mg b.i.d. and SCDs for DVT prophylaxis. She remained hemodynamically stable and neurovascularly intact throughout her hospital stay. On postoperative day zero she began physical therapy and did well. The drain was removed. She continues to do well with physical therapy and was deemed clinically stable for discharge home on postoperative day #3. Prior to discharge, the incision was inspected and noted to be clean, dry and intact. Dressing changes were done prior to the patient being discharged home. LABORATORY ANALYSIS upon discharge hemoglobin 9.4, hematocrit 28.1. Chemistry panel was within normal limits . DISCHARGE MEDICATIONS: 1. Percocet 10/325. 2. Aspirin 325 mg. 3. Protonix 40 mg. Additionally, the patient should resume all her normal home medications. DISCHARGE INSTRUCTIONS: The patient will be discharged home in stable condition. She should resume a normal diet. Activities include weightbearing as tolerated. She should continue to do physical therapy. She will be discharged home with the medications noted above. Additionally, she is to resume all of her normal home medications. The patient is to call the office or return to the emergency room if any concerns including increased redness, swelling, drainage or fever or any concern regarding the operation or site incision. FOLLOWUP: The patient to follow up with Dr. Galvan in the office on 08/26/2016. Dictated By: KAMRAN VU for KINGSLEY NG/NELSON Conf#: [id number] DID#: [id number] MTDD
== END 2016-08-19 13:56 | disposition home health service (06) | DRG 470 ==
LOC: REC 08-16 10:10 → MS1 08-16 20:15
PROVIDERS: ADMIT Orthopaedic Surgery; ATTEND Orthopaedic Surgery
PROC: 0SRD0J9 Replacement of Left Knee Joint with Synthetic Substitute, Cemented, Open Approach (ICD-10-PCS; principal; 2016-08-16 13:30)
DX: M17.12 Unilateral primary osteoarthritis, left knee (principal); F32.9 Major depressive disorder, single episode, unspecified; F20.9 Schizophrenia, unspecified; F41.9 Anxiety disorder, unspecified; D64.9 Anemia, unspecified; E87.6 Hypokalemia
CPT/HCPCS: 73560; 80048; 80053; 81001; 81003; 82728; 83540; 83735; 84100; 85014; 85018; 85025; 86850; 86900; 86901; 86920; 87081; 87086; 88104; 88305; 88313; 97110; 97116; 97162; 97530; Z7610; C1776; C9290; J0131; J0171; J0690; J0697; J0735; J1100; J1170; J1200; J1885; J2250; J2274; J2405; J2710; J3010; J3370; J7120

== ENCOUNTER 2016-08-26 12:39 | Emergency (ER) | payer OTHER ==
[~2016-08-26] VITALS: Ht 167.6 cm; Wt 85.0 kg
[2016-08-26 12:53] VITALS: Ht 167.6 cm; Wt 85.0 kg
--- NOTE | 2016-08-26 15:13 | ERD ---
ER Documentation Chief Complaint Date/Time DATE: 08/26/16 TIME: 15:11 Chief Complaint Pt with L knee surgery sent from Dr English to r/o DVT HPI This is a 61-year-old female presenting to the emergency department status post total knee replacement of the left knee on last Monday with . Patient states that she started feeling increased left knee and left calf pain that radiates up to thigh on Monday. Patient rates the pain as severe. Patient denies any chest pain, shortness of breath. Patient states that she took oxycodone on 4 hours prior to being seen without any relief. Patient was referred from Dr. Tamez to rule out DVT of the left extremity ROS All systems reviewed and are negative except as per history of present illness. Medications Home Meds Active Scripts Oxycodone HCl/Acetaminophen (Percocet 10-325 mg Tablet) 1 Each Tablet, 1 EACH PO Q6 for PAIN LEVEL 6-10, #60 TAB Prov:KAMRAN MANUEL PA-C 08/19/16 Pantoprazole* (Pantoprazole*) 40 Mg Tablet., 40 MG PO BID@06,18 for 30 Days, # 60 Prov:KAMRAN MANUEL PA-C 08/18/16 Aspirin (Aspir-Joanne) 325 Mg Tablet., 325 MG PO BID for 30 Days, #60 Prov:KAMRAN MANUEL PA-C 08/18/16 Reported Medications Gabapentin* (Neurontin*) 300 Mg Capsule, 900 MG PO DAILY, #60 CAP 08/16/16 Escitalopram Oxalate* (Escitalopram Oxalate*) 20 Mg Tablet, 20 MG PO DAILY, #30 TAB 08/16/16 Quetiapine Fumarate* (Quetiapine Fumarate*) 400 Mg Tablet, 1000 MG PO HS, TAB 08/16/16 Lamotrigine* (Lamotrigine*) 200 Mg Tablet, 200 MG PO DAILY, TAB 08/16/16 Alprazolam* (Alprazolam*) 1 Mg Tablet, 1 MG PO Q8H Y for ANXIETY, TAB 08/16/16 Bupropion Hcl* (Bupropion XL*) 150 Mg Tab.er.24h, 150 MG PO DAILY, TAB.SA 08/16/16 Allergies Allergies: Coded Allergies: No Known Drug Allergies (Verified Allergy, Unknown, 08/16/16) PMhx/Soc History of Surgery: Yes (C SECTION X2, CERVICAL NECK SX (C3-4-5) WITH SCREWS) Anesthesia Reaction: Yes (AT ONE TIME"FLAT LINE" AFTER ANESTHESIA) Hx Neurological Disorder: No Hx Respiratory Disorders: No Hx Cardiac Disorders: No Hx Psychiatric Problems: Yes (BIPOLAR, DEPRESSION, schizophrenia, anxiety) Hx Miscellaneous Medical Probl: Yes (schizophrenia, depression, C/S surgery, anxiety, insomnia) Hx Alcohol Use: No Hx Substance Use: No Hx Tobacco Use: Yes (2 TO 3 CIG A DAY) Smoking Status: Unknown if ever smoked Physical Exam Vitals Vital Signs Date Time Temp Pulse Resp B/P Pulse Ox O2 Delivery O2 Flow Rate FiO2 08/26/16 12:53 98.3 88 16 150/77 97 Physical Exam General: WD/WN, in no apparent distress, non-toxic appearing HENT: NC/AT Eyes: Conjunctiva normal Neck: Supple Pulm: Clear to auscultation, normal labored breathing; no wheezing/rales/ rhonchi heard CV: Good capillary refill GI: Non-distended, no guarding Back: No masses Ext: no pitting edema bilaterally, mild knee swelling, positive Homans sign on the left, +2 pedal pulses Neuro: Moves on all fours Skin: intact Psych: Normal mood Procedures/MDM This is a 61-year-old female presenting to the emergency department status post total knee replacement of the left knee on last Monday with . Patient states that she started feeling increased left knee and left calf pain since Monday. Patient was referred from Dr. Tamez to rule out DVT of the left extremity. A venous ultrasound of the left lower extremity was done and did not show any evidence of deep vein thrombosis. I have discussed this with the patient. I discussed to follow-up with Dr. Tamez in the next couple days. Discussed return to the ER for any worsening signs or symptoms. Patient understands and agrees with this plan I will low suspicion for cellulitis, DVT, osteomyelitis. Departure Diagnosis: Primary Impression: Encounter for laboratory test Condition: Stable ALINE MERCADO PA-C Aug 26, 2016 15:13
--- NOTE | 2016-08-26 15:21 | RADRPT ---
PROCEDURE: US Lower extremity Venous. CLINICAL INDICATION: Left leg pain TECHNIQUE: Multiple sonographic images of the left lower extremity deep venous system was obtained utilizing grayscale, color-flow, compressive sonography and doppler imaging with augmentation. The images were reviewed on a PACS workstation. COMPARISON: None. FINDINGS: There is normal compressibility and flow within the left common femoral, superficial femoral, assistant unit forester ior tibial, peroneal and popliteal veins. RPTAT: AA IMPRESSION: No sonographic evidence for deep venous thrombosis. .Tone Rivera MD, MD Date Time Electronically viewed and signed by .Tone Rivera MD, on 08/26/2016 15:21 .S/
[2016-08-26 15:42] VITALS: BP 139/75; PULSE 79; RESP 16; TEMP 98.3
== END 2016-08-26 15:44 | disposition home or self-care (01) ==
LOC: FTE 12:39
DX: Z00.00 Encounter for general adult medical examination without abnormal findings (principal); F17.210 Nicotine dependence, cigarettes, uncomplicated; Z79.82 Long term (current) use of aspirin
CPT/HCPCS: 93971; Z7502

== ENCOUNTER → 2016-08-26 | Outpatient (CLI) | payer OTHER ==
[~2016-08-26] MED LIST: ALPR1TAB7 PO; ASPI325T32 PO; BUPR150T6 PO; ESCI20TA38 PO; GABA300C PO; LAMO200T PO; OXYC-209 PO; PANT40TA4 PO; QUET400T11 PO
--- NOTE | 2016-08-26 12:06 | RADRPT ---
PROCEDURE: XR right knee. CLINICAL INDICATION: Knee pain. /fall TECHNIQUE: AP and lateral views are available for review. COMPARISON: 08/16/2016 FINDINGS: There is a total knee replacement. There is no evidence of loosening of the prosthesis. The osseous structures are normal in mineralization, architecture and alignment No acute fracture or dislocation is seen.No osseous lesions are identified. The soft tissues are unremarkable . IMPRESSION: Unremarkable total knee replacement. RPTAT: HGDB .Albert Zaragoza MD, MD Date Time Electronically viewed and signed by .Albert Zaragoza MD, MD on 08/26/2016 12:06 .B/
--- NOTE | 2016-08-26 12:37 | RADRPT ---
PROCEDURE: XR Left Tibia and Fibula. CLINICAL INDICATION: Left lower leg pain. Postop. TECHNIQUE: Two views. Frontal and lateral. COMPARISON: 08/10/2016. FINDINGS: There is no fracture or dislocation. There is diffuse soft tissue swelling. There is a total left knee arthroplasty which appears satisfactory. There is no lytic or blastic lesion. There is no radiopaque foreign body. IMPRESSION: 1. Satisfactory postoperative appearance of the left knee. 2. Diffuse soft tissue swelling. 3. Otherwise unremarkable images of the left tibia and fibula. RPTAT: QQ .Ralph Alcazar MD, MD Date Time Electronically viewed and signed by .Ralph Alcazra MD, MD on 08/26/2016 12:37 .R/
== END | disposition home or self-care (01) ==
LOC: HKI 09:40
PROVIDERS: ATTEND Orthopaedic Surgery
DX: Z47.1 Aftercare following joint replacement surgery (principal); M17.12 Unilateral primary osteoarthritis, left knee; Z96.652 Presence of left artificial knee joint
CPT/HCPCS: 73560; 73590; Z7500; G0463

== ENCOUNTER → 2016-09-09 | Outpatient (CLI) | payer OTHER | END | disposition home or self-care (01) | LOC: HKI 08:36 | PROVIDERS: ATTEND Orthopaedic Surgery | DX: Z47.1 Aftercare following joint replacement surgery (principal); G89.18 Other acute postprocedural pain; Z96.652 Presence of left artificial knee joint | CPT/HCPCS: G0463 ==

== ENCOUNTER → 2016-10-31 | Outpatient (CLI) | END | disposition home or self-care (01) | DX: Z47.1 Aftercare following joint replacement surgery (principal); M17.12 Unilateral primary osteoarthritis, left knee; Z96.652 Presence of left artificial knee joint ==

== ENCOUNTER → 2017-01-30 | Outpatient (CLI) | payer OTHER ==
--- NOTE | 2017-01-30 16:38 | RADRPT ---
PROCEDURE: XR left knee. CLINICAL INDICATION: Knee pain TECHNIQUE: AP and lateral weightbearing views and a sunrise view are available for review. COMPARISON: None available FINDINGS: There is a total knee replacement. There is no evidence of loosening of the prosthesis. There is no evidence of hardware failure. The osseous structures are normal in mineralization, architecture and alignment No acute fracture or dislocation is seen. No osseous lesions are identified. The soft tiss ues are unremarkable . there is a small suprapatellar joint effusion IMPRESSION: Unremarkable total knee replacement. Small suprapatellar joint effusion Unchanged from the previous examination RPTAT: HGDB .Albert Zaragoza MD, MD Date Time Electronically viewed and signed by .Albert Zaragoza MD, on 01/30/2017 16:37 .B/
== END | disposition home or self-care (01) ==
LOC: HKI 10:41
PROVIDERS: ATTEND Orthopaedic Surgery
DX: Z47.89 Encounter for other orthopedic aftercare (principal); Z96.652 Presence of left artificial knee joint
CPT/HCPCS: 73562; Z7500; G0463

== ENCOUNTER → 2018-01-02 | Outpatient (CLI) | END | disposition home or self-care (01) ==

== ENCOUNTER → 2018-06-25 | Outpatient (CLI) | END | disposition home or self-care (01) ==